=== PATIENT | female | born 1970 | race Two or more races ===

== ENCOUNTER 2025-04-23 15:23 | Emergency (ER) | payer OTHER ==
[~2025-04-23] VITALS: Ht 162.6 cm; Wt 65.8 kg
[2025-04-23] MEDS ORDERED: GABAPENTIN 600 MG TABLET PO ONE (16:30)
[2025-04-23] MEDS ORDERED: BUTALB/ACETAMINOPHEN/CAFFEINE 1 TAB TABLET PO ONE ×2 (16:30→16:38)
[2025-04-23 17:02] LABS: BASO % 0.7 % (0.1-1.2); EOS # 0.15 (0.04-0.54); EOS % 2.8 % (0.7-7.0); LYMPH # 1.79 (1.18-3.74); LYMPH % 33.2 % (19.3-53.1); MEAN PLATELET VOLUME 8.50 fl (9.4-12.4); MONO # 0.57 (0.24-0.82); MONO % 10.6 % (4.7-12.5); NEUT # 2.82 (1.56-6.13); NEUT % 52.3 % (34.0-71.1); RED CELL DISTRIBUTION WIDTH 12.8 % (11.6-14.4)
[2025-04-23 17:41] LABS: ALT/SGPT 25.0 U/L (12-78); AST/SGOT 13.0 U/L (15-37); BILIRUBIN TOTAL 0.29 mg/dL (0.3-1.2); BUN CREA RATIO 25.0 (7.0-25.0); CREATININE SERUM 0.57 mg/dL (0.55-1.02); GFR 110.53; GLOBULINA 3.5 G/DL (2.4-3.5); GLUCOSE FASTING 117.0 mg/dL (65-100); OSMOLALITY SERUM 290.0 MOSM/KG (275-295)
[2025-04-23] MEDS ORDERED: NEURONTIN300 MG PO (19:16)
== END 2025-04-23 19:33 | disposition home or self-care (01) ==
LOC: ER 15:23
PROVIDERS: General Practice
DX: G50.0 Trigeminal neuralgia (principal)